=== PATIENT | female | born 1960 | race Caucasian/White ===

== ENCOUNTER 2022-09-16 11:14 | Day surgery (SDC) | payer BC, SELFPAY ==
[2022-09-16] MEDS: Lactated Ringers 1,000 ML 15 ML IV (11:30)
[2022-09-16 11:40] VITALS: BP 124/76; PULSE 60; RESP 18; TEMP 36.6; O2SAT 98; BMI 31.8
--- NOTE | 2022-09-16 12:30 | COLBX_PTH ---
PATIENT: JEANNE BAL LOC: EN U#:[id number] AGE/SX: 62/F ROOM: RE09/16/[address]: Dr. Justin Murphy DO : 1960 BED: DIS: 09/16/2022 SPEC #: [id number] RECD: 09/16/22 14:08 STATUS: ZANA REBatsheva #: [id number] XUAN: 09/16/22 12:[address]: Justin Murphy DEPT: SURGICAL PATHOLOGY RECD BY: Marquise Nixon ENTERED: 09/17/22 08:30 SP TYPE: COLON BX OTHR DR: Dr. Casandra Mejia DO Tissues: Esophagus, NOS Procedures: Special Stain Group II Surgery Specimen Level IV Alcian Blue/PAS (control) HEADER OPERATION: Colonoscopy, EGD ([facility]) with biopsies PRE-OP DIAGNOSIS: Iron deficiency anemia, constipation, dysphagia TISSUE SUBMITTED: Distal esophagus biopsy MICROSCOPIC DIAGNOSIS Distal esophagus, biopsy: Gastroesophageal junctional mucosa with chronic inflammation. No evidence of goblet cell metaplasia. See comment. AM:radha 09/18/2022 COMMENT Alcian blue/PAS stain with matched control supports the above diagnosis. MICROSCOPIC DESCRIPTION Slides are reviewed. GROSS DESCRIPTION Received in fixative is one container labeled with the patient's name and designated distal esophagus biopsy. The specimen consists of two irregular fragments of light jett soft tissue that in aggregate measure 0.7 x 0.6 x 0.1 cm. The specimen is totally submitted in one cassette. / AM:radha 09/17/2022 TC:3 CPT: 12794, 57133
--- NOTE | 2022-09-16 12:40 | HP.PCM_ITS ---
History and Physical Date of Admission: 09/16/22 JEANNE BAL, is a 62 F who presents to the office today for iron deficiency anemia of unknown cause. She established with [facility] on 07/21/22 for iron deficiency anemia of unknown cause. In March 2022 she had weakness and SOB, found to have low hemoglobin, was admitted to [facility], transfused with one unit of blood as well as iron. 04/05/22 hgb 6.6, then hgb 9.0 on 04/09/22 at discharge. Recheck on 04/30/22 hgb 11.4, iron 25. She was prescribed iron supplement but discontinued it shortly after hospital discharge due to worsening of her chronic constipation. She takes xarelto for atrial fibrillation and hx [place]. Denies having any GI symptoms at time of her hospitalization. No hx of GIB. One month ago she developed difficulty swallowing; she has choked on her food 4x, food sticks in upper esophagus, she has been able to get it to pass by drinking lots of water. Denies heartburn or acid reflux. No nausea or vomiting. Doesn't take anything for chronic constipation, worries she will need to use the restroom at work if she takes something. Has BM max 2x per week. No melena or hematochezia. No diarrhea. No abd pain. No prior EGD or colonoscopy. Negative Cologuard in 2020. 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 ROS Const Constitutional: No fatigue ENT ENT: No difficulty swallowing Gastro GI: No abdominal pain, belching, bloating, change in bowel habits, change in stool character, coffee ground emesis, constipation, cramping, diarrhea, heartburn, difficulty swallowing, feeling full early, excessive flatus, incontinent of stools, Vomiting blood/hematemesis, Blood in stool, loose stools, Black,tarry stools, nausea/dyspepsia, pain with swallowing, vomiting or other Musc Musculoskeletal: No joint pain Skin Skin: No yellowing of the eye or itchy eyes Psych Psychiatric: No anxiety and No depression Endo Endocrine: No fatigue Aller/Imm Allergy/Immunologic: No itchy eyes Liban/Lymp Hematologic/Lymphatic: Positive for easy bruising; No easy bleeding Exam Const General: cooperative, comfortable and no acute distress Nutritional Appearance: obese Orientation: alert, awake and oriented x3 HENMT Head: normal to inspection Eyes General: appearance normal, both eyes and all related structures Resp Effort & Inspection: normal respiratory effort GI Inspection: normal to inspection Palpation: soft, no hepatosplenomegaly, no masses and nontender Skin General: no jaundice Neuro Speech: speech normal Gait: normal gait Extrem General: pedal edema present Psych Mood: euthymic mood Affect: normal affect Quality Reporting Tobacco Screening ([facility] [address]) Smoking Status: Former smoker Assessment and Plan Assessment and Plan (1) Iron deficiency anemia: ?Status:?Acute ?Plan: 62 yr old female with iron deficiency anemia for which she was hospitalized in March 2022, received blood transfusion and iron transfusion, etiology unknown. No hx of GI bleed. No prior EGD or colonoscopy. She is getting labs drawn today at [facility] abd pel w/ oral and IV contrast Capsule endoscopy to eval the small bowel especially for GI bleed Upper and lower endoscopy, w/ f/u 2 wks after (2) Constipation: ?Status:?Acute ?Plan: We can discuss treatments at f/u visit, she is reluctant to take anything (3) Dysphagia: ?Status:?Acute ?Plan: Discussed need to eval for stenosis/stricture or other cause. This is a new problem. No heartburn or acid reflux. EGD to evaluate for stricture, Hurt's, malignancy or other cause of dysphagia as well as cause of anemia. She declines PPI at this time ? ? ? Orders: Orders Abdomen/Pelvis WITH Contrast Today D50.9 - Iron deficiency anemia, unspecified, K59.00 - Constipation, unspecified ? I have re-examined the patient and reviewed the H&P. There are no clinical changes since date of exam.
[2022-09-16 13:32] VITALS: BP 114/72; BP 124/72; PULSE 71; RESP 16; TEMP 36.2; O2SAT 100
[2022-09-16 13:34] VITALS: BP 115/72; BP 124/72; PULSE 76; RESP 16; O2SAT 97
--- NOTE | 2022-09-16 13:39 | OP.EGD_ITS ---
Patient Name: Janet Serrano Procedure Date: 09/16/2022 12:44 PM Date of : 1960 Age: 62 Procedure: Upper GI endoscopy Indications: Dysphagia Providers: Justin Murphy DO Medicines: Monitored Anesthesia Care Patient Profile: This is a 62 year old female. Refer to note in patient chart for documentation of history and physical. Patient has symptoms of dysphagia with solids. The symptoms first began within the past few months. Complications: No immediate complications. Procedure: Pre-Anesthesia Assessment: - Prior to the procedure, a History and Physical was performed, and patient medications and allergies were reviewed. The risks and benefits of the procedure and the sedation options and risks were discussed with the patient. All questions were answered and informed consent was obtained. Patient identification and proposed procedure were verified by the physician in the pre-procedure area. Mental Status Examination: alert and oriented. Airway Examination: normal oropharyngeal airway and neck mobility. Respiratory Examination: clear to auscultation. CV Examination: normal. Prophylactic Antibiotics: The patient does not require prophylactic antibiotics. Prior Anticoagulants: The patient has taken no previous anticoagulant or antiplatelet agents. ASA Grade Assessment: II - A patient with mild systemic disease. After reviewing the risks and benefits, the patient was deemed in satisfactory condition to undergo the procedure. The anesthesia plan was to use moderate sedation / analgesia (conscious sedation). Immediately prior to administration of medications, the patient was re-assessed for adequacy to receive sedatives. The heart rate, respiratory rate, oxygen saturations, blood pressure, adequacy of pulmonary ventilation, and response to care were monitored throughout the procedure. The physical status of the patient was re-assessed after the procedure. After obtaining informed consent, the endoscope was passed under direct vision. Throughout the procedure, the patient's blood pressure, pulse, and oxygen saturations were monitored continuously. The colonoscope was introduced through the mouth, and advanced to the second part of duodenum. The upper GI endoscopy was accomplished without difficulty. The patient tolerated the procedure well. Scope In: 12:51:38 PM Scope Out: 1:00:45 PM Total Procedure Duration Time 0 hours 9 minutes 7 seconds Findings: LA Grade A (one or more mucosal breaks less than 5 mm, not extending between tops of 2 mucosal folds) esophagitis with no bleeding was found 34 to 36 cm from the incisors. Biopsies were taken with a cold forceps for histology. Verification of patient identification for the specimen was done. Estimated blood loss was minimal. A moderate Schatzki ring was found in the lower third of the esophagus. A guidewire was placed and the scope was withdrawn. Dilation was performed with a Savary dilator with no resistance at 54 Fr. The dilation site was examined and showed moderate improvement in luminal narrowing. Estimated blood loss was minimal. Patchy, white plaques were found in the upper third of the esophagus. A small hiatal hernia was present. Moderate gastric antral vascular ectasia without bleeding was present in the gastric antrum. No gross lesions were noted in the first portion of the duodenum. Impression: - LA Grade A reflux esophagitis. Biopsied. - Moderate Schatzki ring. Dilated. - Esophageal plaques were found, consistent with candidiasis. - Small hiatal hernia. - Gastric antral vascular ectasia without bleeding. - No gross lesions in the first portion of the duodenum. Recommendation: - Discharge patient to home. - Resume previous diet. - Continue present medications. - Await pathology results. - Use Protonix (pantoprazole) 40 mg PO daily for 8 weeks. -Use fluconazole 200 mg once a day x5 to 7 days Procedure Code(s): --- Professional --- 69564, Esophagogastroduodenoscopy, flexible, transoral; with insertion of guide wire followed by passage of dilator(s) through esophagus over guide wire 10085, 59, Esophagogastroduodenoscopy, flexible, transoral; with biopsy, single or multiple CPT copyright 2017 [employer]. All rights reserved. The codes documented in this report are preliminary and upon supervisor seaming review may be revised to meet current compliance requirements. Justin Murphy DO 09/16/2022 1:35:48 PM This report has been signed electronically. Number of Addenda: 0 Note Initiated On: 09/16/2022 12:44 PM
[2022-09-16 13:40] VITALS: BP 118/74; BP 124/72; PULSE 78; RESP 16; O2SAT 95
--- NOTE | 2022-09-16 13:40 | OP.CCLET_ITS ---
09/16/2022 Casandra Diez Do Re : Upper GI endoscopy procedure for Janet Serrano Dear Rg This procedure was performed on Friday, September 16, 2022. My impressions and recommendations are as follows: Impressions : - LA Grade A reflux esophagitis. Biopsied. - Moderate Schatzki ring. Dilated. - Esophageal plaques were found, consistent with candidiasis. - Small hiatal hernia. - Gastric antral vascular ectasia without bleeding. - No gross lesions in the first portion of the duodenum. Recommendations : - Discharge patient to home. - Resume previous diet. - Continue present medications. - Await pathology results. - Use Protonix (pantoprazole) 40 mg PO daily for 8 weeks. -Use fluconazole 200 mg once a day x5 to 7 days My findings are described in the full procedure note, which is enclosed. If I can be of further assistance, please feel free to contact me at . Sincerely, Justin Murphy, 09/16/2022 1:35:48 PM This report has been signed electronically.
--- NOTE | 2022-09-16 13:41 | OP.COLON_ITS ---
Patient Name: Janet Serrano Procedure Date: 09/16/2022 1:00 PM Date of : 1960 Age: 62 Procedure: Colonoscopy Indications: Iron deficiency anemia Providers: Justin Murphy DO Medicines: Monitored Anesthesia Care Patient Profile: This is a 62 year old female. Refer to note in patient chart for documentation of history and physical. Patient has symptoms of dysphagia with solids. The symptoms first began within the past few months. Last Colonoscopy: date unknown. Unable to locate last colonoscopy report. Complications: No immediate complications. Procedure: Pre-Anesthesia Assessment: - Prior to the procedure, a History and Physical was performed, and patient medications and allergies were reviewed. The risks and benefits of the procedure and the sedation options and risks were discussed with the patient. All questions were answered and informed consent was obtained. Patient identification and proposed procedure were verified by the physician in the pre-procedure area. Mental Status Examination: alert and oriented. Airway Examination: normal oropharyngeal airway and neck mobility. Respiratory Examination: clear to auscultation. CV Examination: normal. Prophylactic Antibiotics: The patient does not require prophylactic antibiotics. Prior Anticoagulants: The patient has taken no previous anticoagulant or antiplatelet agents. ASA Grade Assessment: II - A patient with mild systemic disease. After reviewing the risks and benefits, the patient was deemed in satisfactory condition to undergo the procedure. The anesthesia plan was to use moderate sedation / analgesia (conscious sedation). Immediately prior to administration of medications, the patient was re-assessed for adequacy to receive sedatives. The heart rate, respiratory rate, oxygen saturations, blood pressure, adequacy of pulmonary ventilation, and response to care were monitored throughout the procedure. The physical status of the patient was re-assessed after the procedure. After I obtained informed consent, the scope was passed under direct vision. Throughout the procedure, the patient's blood pressure, pulse, and oxygen saturations were monitored continuously. The colonoscope was introduced through the anus and advanced to the cecum, identified by appendiceal orifice and ileocecal valve. The colonoscopy was performed without difficulty. The patient tolerated the procedure well. The quality of the bowel preparation was good. Scope In: 1:03:51 PM Scope Withdrawal Time 0 hours 15 minutes 56 seconds Scope Out: 1:23:45 PM Total Procedure Duration Time 0 hours 19 minutes 54 seconds Findings: The perianal and digital rectal examinations were normal. A few small-mouthed diverticula were found in the sigmoid colon. Three localized angiodysplastic lesions with bleeding were found in the ascending colon and in the cecum. Coagulation for hemostasis using heater probe was successful. Estimated blood loss was minimal. Impression: - Diverticulosis in the sigmoid colon. - Three bleeding colonic angiodysplastic lesions. Treated with a heater probe. - No specimens collected. Recommendation: - Discharge patient to home. - Resume previous diet. - Continue present medications. - Repeat colonoscopy in 5 years for surveillance. Procedure Code(s): --- Professional --- 98625, Colonoscopy, flexible; with control of bleeding, any method CPT copyright 2017 [employer]. All rights reserved. The codes documented in this report are preliminary and upon regional administrative assistant review may be revised to meet current compliance requirements. Justin Murphy DO 09/16/2022 1:38:44 PM This report has been signed electronically. Number of Addenda: 0 Note Initiated On: 09/16/2022 1:00 PM
--- NOTE | 2022-09-16 13:41 | OP.CCLET_ITS ---
09/16/2022 Casandra Diez Do Re : Colonoscopy procedure for Janet Serrano Dear Rg This procedure was performed on Friday, September 16, 2022. My impressions and recommendations are as follows: Impressions : - Diverticulosis in the sigmoid colon. - Three bleeding colonic angiodysplastic lesions. Treated with a heater probe. - No specimens collected. Recommendations : - Discharge patient to home. - Resume previous diet. - Continue present medications. - Repeat colonoscopy in 5 years for surveillance. My findings are described in the full procedure note, which is enclosed. If I can be of further assistance, please feel free to contact me at . Sincerely, Justin Murphy, 09/16/2022 1:38:44 PM This report has been signed electronically.
[2022-09-16 13:45] VITALS: BP 112/74; BP 124/72; PULSE 69; RESP 16; TEMP 36.7; O2SAT 94
[2022-09-16 14:13] VITALS: BP 124/72
== END 2022-09-16 14:15 | disposition home or self-care (01) ==
LOC: EN 11:17 → AC 11:18
PROVIDERS: PCP Family Medicine; Referring Provider Family Medicine; Visit Provider Internal Medicine Gastroenterology
PROC: 0DJD8ZZ Inspection of Lower Intestinal Tract, Via Natural or Artificial Opening Endoscopic (ICD-10-PCS; CPT 45378; principal; 2022-09-16 12:25)
DX: D50.9 Iron deficiency anemia, unspecified (principal); I48.91 Unspecified atrial fibrillation; K44.9 Diaphragmatic hernia without obstruction or gangrene; K57.30 Diverticulosis of large intestine without perforation or abscess without bleeding; R13.10 Dysphagia, unspecified; Z87.891 Personal history of nicotine dependence; K21.01 Gastro-esophageal reflux disease with esophagitis, with bleeding; K31.819 Angiodysplasia of stomach and duodenum without bleeding; Z79.01 Long term (current) use of anticoagulants; K59.00 Constipation, unspecified
CPT/HCPCS: 43239; 43248; 45382; 88305; 88313; J7120; C1769; J2405